=== PATIENT | male | born 1965 | race Caucasian/White ===

== ENCOUNTER 2019-06-19 15:05 | Observation (INO) ==
[2019-06-19] MEDS ORDERED: *HR* Heparin 5,000 UNIT/ML VIAL IVP ONE (17:54)
[2019-06-19] MEDS ORDERED: *HR* Heparin 5,000 UNIT/ML VIAL IVP PRN (17:54)
[2019-06-19] MEDS ORDERED: Naloxone 0.4 MG/ML INJ IVP PRN (17:56)
[2019-06-19] MEDS ORDERED: Ondansetron 4 MG/2 ML VIAL IVP PRN (17:56)
[2019-06-19] MEDS ORDERED: Heparin 25,000 UNIT/250 ML D5W 25,000 UNIT/250 ML IV.SOLN IVC SCH (18:00)
[2019-06-19] MEDS ORDERED: Furosemide 20 MG TABLET PO PRN (18:14)
[2019-06-19 19:08] LABS: Prothrombin Time 11.7 Seconds (9.4-12.1)
[2019-06-19 19:10] LABS: Hematocrit 43.3 % (37.5-50.1); Hemoglobin 14.9 g/dL (12.9-16.9); Mean Corpuscular HGB Conc 34.4 g/dL (31.6-35.5); Mean Corpuscular Hemoglobin 30.8 pg (28.0-33.3); Mean Corpuscular Volume 89.5 fL (83.0-100.0); Platelet Count 251 K/mcL (140-400); Red Blood Count 4.84 M/mcL (4.19-5.50); Red Cell Distribution Width 13.2 % (11.5-14.5); White Blood Count 9.8 K/mcL (4.3-11.1)
[2019-06-19] MEDS ORDERED: Acetaminophen 325 MG TABLET PO ONE (20:17)
[2019-06-20 00:48] LABS: Basophils % 0.4 %; Hematocrit 41.7 % (37.5-50.1); Hemoglobin 13.6 g/dL (12.9-16.9); Immature Granulocytes % 0.3 % (0-4); Lymphocytes # 2.7 K/mcL (0.6-4.6); Lymphocytes % 28.6 %; Mean Corpuscular HGB Conc 32.6 g/dL (31.6-35.5); Mean Corpuscular Hemoglobin 30.2 pg (28.0-33.3); Mean Corpuscular Volume 92.7 fL (83.0-100.0); Mean Platelet Volume 10.8 fL (9.4-12.4); Monocytes # 0.9 K/mcL (0.0-1.3); Monocytes % 9.4 %; Neutrophils # 5.8 K/mcL (1.6-8.9); Platelet Count 228 K/mcL (140-400); Red Cell Distribution Width 13.3 % (11.5-14.5); Segmented Neutrophils % 61.3 %; White Blood Count 9.4 K/mcL (4.3-11.1)
[2019-06-20 01:08] LABS: BUN/Creatinine Ratio 18 (6-26); Blood Urea Nitrogen 19 mg/dL (6-20); Calcium 9.2 mg/dL (8.6-10.3); Carbon Dioxide 24 mEq/L (23-29); Chloride 103 mEq/L (98-107); Glucose 125 mg/dL (70-105); Osmolality,Calculated 288 (280-300); Potassium 3.7 mEq/L (3.5-5.1); Sodium 137 mEq/L (136-145); eGFR For African Americans > 60 (> 60); eGFR For Non-African Americans > 60 (> 60)
[2019-06-20] MEDS: *HR* Heparin 5,000 UNIT/ML VIAL IVP PRN ×2 (02:49→10:41)
[2019-06-20] MEDS: Venlafaxine XR (24 HR) 75 MG CAP.ER.24H PO SCH (07:47)
[2019-06-20] MEDS: Aspirin Enteric Coated 81 MG Tablet PO SCH (07:47)
[2019-06-20] MEDS ORDERED: Nitroglycerin 0.4 MG TAB.SUBL SL PRN (09:28)
[2019-06-20] MEDS ORDERED: 0.9 % Sodium Chloride 2,000 ML ONE (14:14)
[2019-06-20] MEDS ORDERED: Heparin 1,000 UNITS/500 mL 500 ML ONE (14:15)
[2019-06-20] MEDS ORDERED: *HR* Heparin 10,000 UNIT/10 ML VIAL ONE (14:15)
[2019-06-20] MEDS ORDERED: Nitroglycerin 1,000 MCG/10 ML VIAL IV ONE (14:15)
[2019-06-20] MEDS ORDERED: ISOVUE-370 200 ML INFUS..BTL ONE ×2 (14:15→15:02)
[2019-06-20] MEDS ORDERED: *HR* Midazolam HCl 2 MG/2 ML VIAL ONE (14:31)
[2019-06-20] MEDS ORDERED: *HR* FentaNYL (PF) 100 MCG/2 ML VIAL ONE (14:32)
[2019-06-20] MEDS ORDERED: *HR* Bivalirudin 250 MG VIAL IVC ONE (15:02)
[2019-06-20] MEDS ORDERED: 0.9 % Sodium Chloride 1,000 ML IVC SCH (15:45)
[2019-06-20] MEDS ORDERED: Perflutren Lipid Microsphere 1.3 ML in 0.9 % Sodium Chloride 8.7 ML IVP ONE ×2 (16:09→22:20)
[2019-06-20] MEDS ORDERED: Acetaminophen 325 MG TABLET PO ONE (16:43)
[2019-06-20] MEDS ORDERED: Perflutren Lipid Microsphere 2 ML VIAL ONE (22:23)
[2019-06-21 06:39] LABS: Hematocrit 43.9 % (37.5-50.1); Hemoglobin 14.5 g/dL (12.9-16.9); Mean Corpuscular Hemoglobin 30.2 pg (28.0-33.3); Mean Corpuscular Volume 91.5 fL (83.0-100.0); Mean Platelet Volume 11.3 fL (9.4-12.4); Platelet Count 224 K/mcL (140-400); Red Cell Distribution Width 13.2 % (11.5-14.5); White Blood Count 7.8 K/mcL (4.3-11.1)
[2019-06-21 06:51] LABS: BUN/Creatinine Ratio 15 (6-26); Blood Urea Nitrogen 17 mg/dL (6-20); Calcium 8.7 mg/dL (8.6-10.3); Carbon Dioxide 27 mEq/L (23-29); Chloride 103 mEq/L (98-107); Chol/HDL Ratio 5.7 (0-4.9); Cholesterol 159 mg/dL (< 200); Glucose 129 mg/dL (70-105); HDL Cholesterol 28 mg/dL (40-59); LDL Cholesterol,Calculated 82 mg/dL (0-99); Magnesium 1.9 mg/dL (1.6-2.6); Osmolality,Calculated 291 (280-300); Sodium 139 mEq/L (136-145); Triglycerides 243 mg/dL (< 150); eGFR For African Americans > 60 (> 60); eGFR For Non-African Americans > 60 (> 60)
[2019-06-21 08:00] VITALS: BP 131/83
[2019-06-21] MEDS: Venlafaxine XR (24 HR) 75 MG CAP.ER.24H PO SCH (08:26)
[2019-06-21] MEDS: Aspirin Enteric Coated 81 MG Tablet PO SCH (08:26)
[2019-06-21 08:35] LABS: Estimated Average Glucose 140 mg/dl
== END 2019-06-21 11:14 | disposition home or self-care (01) ==
LOC: CDU → SUATTDRO 16:44 → 2ANU 06-20 12:12
PROVIDERS: ADMIT Family Medicine; ATTEND Internal Medicine

== ENCOUNTER 2019-07-07 20:52 | Inpatient (IN) ==
[2019-07-08] MEDS ORDERED: Morphine Sulfate 2 MG/ML SYRINGE IVP ONE ×3 (00:28→05:14)
[2019-07-08] MEDS ORDERED: Nitroglycerin 0.4 MG TAB.SUBL SL PRN (00:29)
[2019-07-08] MEDS ORDERED: Acetaminophen IV 1,000 MG/100 ML INFUS..BTL IVPB ONE (01:10)
[2019-07-08 02:13] LABS: Heparin anti-factor XA UFH 0.1 IU/mL (0.30-0.70)
[2019-07-08] MEDS ORDERED: *HR* Heparin 5,000 UNIT/ML VIAL IVP ONE (02:37)
[2019-07-08] MEDS ORDERED: *HR* Heparin 5,000 UNIT/ML VIAL IVP PRN ×2 (02:37)
[2019-07-08] MEDS ORDERED: Heparin 25,000 UNIT/250 ML D5W 25,000 UNIT/250 ML IV.SOLN IVC SCH (02:45)
[2019-07-08] MEDS ORDERED: Ondansetron ODT 4 MG TAB.RAPDIS SL PRN (02:52)
[2019-07-08] MEDS ORDERED: Naloxone 0.4 MG/ML INJ IVP PRN (02:52)
[2019-07-08 03:16] LABS: INR 1.2; Prothrombin Time 13.2 Seconds (9.4-12.1)
[2019-07-08 03:20] LABS: Basophils # 0.1 K/mcL (0.0-0.2); Basophils % 0.6 %; Hemoglobin 13.9 g/dL (12.9-16.9); Immature Granulocytes % 0.2 % (0-4); Lymphocytes # 2.4 K/mcL (0.6-4.6); Lymphocytes % 28.5 %; Mean Corpuscular HGB Conc 33.9 g/dL (31.6-35.5); Mean Corpuscular Hemoglobin 30.3 pg (28.0-33.3); Mean Corpuscular Volume 89.5 fL (83.0-100.0); Mean Platelet Volume 11.1 fL (9.4-12.4); Monocytes # 0.7 K/mcL (0.0-1.3); Monocytes % 8.1 %; Neutrophils # 5.3 K/mcL (1.6-8.9); Platelet Count 267 K/mcL (140-400); Red Blood Count 4.58 M/mcL (4.19-5.50); Red Cell Distribution Width 13.1 % (11.5-14.5); Segmented Neutrophils % 62.6 %; White Blood Count 8.5 K/mcL (4.3-11.1)
[2019-07-08 03:28] LABS: Estimated Average Glucose 140 mg/dl
[2019-07-08 03:42] LABS: Alanine Aminotransferase 21 Units/L (7-52); Albumin 3.9 g/dL (3.5-5.7); Albumin/Globulin Ratio 1.7 (1.1-2.2); Alkaline Phosphatase 68 Units/L (34-104); Aspartate Amino Transferase 38 Units/L (13-39); BUN/Creatinine Ratio 15 (6-26); Bilirubin,Total 0.4 mg/dL (0.3-1.0); Blood Urea Nitrogen 16 mg/dL (6-20); Calcium 8.8 mg/dL (8.6-10.3); Carbon Dioxide 23 mEq/L (23-29); Chloride 103 mEq/L (98-107); Chol/HDL Ratio 5.1 (0-4.9); Cholesterol 143 mg/dL (< 200); Globulin 2.3 g/dL (2.4-3.5); Glucose 177 mg/dL (70-105); HDL Cholesterol 28 mg/dL (40-59); LDL Cholesterol,Calculated 72 mg/dL (0-99); Magnesium 1.9 mg/dL (1.6-2.6); Osmolality,Calculated 288 (280-300); Phosphorous 3.7 mg/dL (2.7-4.5); Potassium 3.7 mEq/L (3.5-5.1); Sodium 136 mEq/L (136-145); Total Protein 6.2 g/dL (6.4-8.9); Triglycerides 213 mg/dL (< 150); Troponin I 2.42 ng/mL (< 0.04); eGFR For African Americans > 60 (> 60); eGFR For Non-African Americans > 60 (> 60)
[2019-07-08] MEDS ORDERED: 0.9 % Sodium Chloride 2,000 ML ONE (06:38)
[2019-07-08] MEDS ORDERED: Nitroglycerin 1,000 MCG/10 ML VIAL IV ONE (06:39)
[2019-07-08] MEDS ORDERED: Heparin 1,000 UNITS/500 mL 500 ML ONE (06:39)
[2019-07-08] MEDS ORDERED: *HR* Heparin 10,000 UNIT/10 ML VIAL ONE (06:39)
[2019-07-08] MEDS ORDERED: ISOVUE-370 200 ML INFUS..BTL ONE ×2 (06:39→07:33)
[2019-07-08] MEDS ORDERED: *HR* FentaNYL (PF) 100 MCG/2 ML VIAL ONE (06:55)
[2019-07-08] MEDS ORDERED: *HR* Midazolam HCl 2 MG/2 ML VIAL ONE (06:55)
[2019-07-08] MEDS ORDERED: Tirofiban 12.5 MG/250ML 12.5 MG/250 ML BAG ONE (07:17)
[2019-07-08] MEDS ORDERED: D5% in Water 1,000 ML IVC PRN (07:26)
[2019-07-08] MEDS ORDERED: *HR* Dextrose 50 % in Water (Syg) 50 ML SYRINGE IVP PRN (07:26)
[2019-07-08] MEDS ORDERED: Dextrose Gel 15 GM/37.5 ML TUBE PO PRN ×2 (07:26)
[2019-07-08] MEDS ORDERED: *HR* Ticagrelor 90 MG TABLET ONE (07:46)
[2019-07-08] MEDS ORDERED: Tirofiban 12.5 MG/250ML 12.5 MG/250 ML BAG IVC SCH (08:00)
[2019-07-08] MEDS: Aspirin 81 MG TAB.CHEW PO SCH (09:27)
[2019-07-08 10:30] LABS: Amphetamine Screen,Urine Negative ng/mL (Cutoff=1000); Barbiturate Screen,Urine Negative ng/mL (Cutoff=200); Benzodiazepines Screen,Urine Positive ng/mL (Cutoff=200); Cannabinoid Screen,Urine Negative ng/mL (Cutoff = 50); Cocaine Screen,Urine Negative ng/mL (Cutoff= 300); Opiate Screen,Urine Positive ng/mL (Cutoff=300); Phencyclidine Screen,Urine Negative ng/mL (Cutoff=25)
[2019-07-08] MEDS ORDERED: Insulin LISPRO 300 UNITS/3 ML VIAL SQ SCH (12:00)
[2019-07-08] MEDS ORDERED: Furosemide 20 MG TABLET PO PRN (12:49)
[2019-07-08] MEDS: *HR* Ticagrelor 90 MG TABLET PO SCH (21:27)
[2019-07-09 05:23] LABS: Basophils # 0.1 K/mcL (0.0-0.2); Basophils % 0.5 %; Hematocrit 38.6 % (37.5-50.1); Hemoglobin 12.4 g/dL (12.9-16.9); Immature Granulocytes % 0.4 % (0-4); Lymphocytes # 2.2 K/mcL (0.6-4.6); Lymphocytes % 22.4 %; Mean Corpuscular HGB Conc 32.1 g/dL (31.6-35.5); Mean Corpuscular Hemoglobin 30.2 pg (28.0-33.3); Mean Corpuscular Volume 94.1 fL (83.0-100.0); Mean Platelet Volume 10.8 fL (9.4-12.4); Monocytes # 0.9 K/mcL (0.0-1.3); Monocytes % 8.8 %; Neutrophils # 6.7 K/mcL (1.6-8.9); Platelet Count 216 K/mcL (140-400); Red Cell Distribution Width 13.2 % (11.5-14.5); Segmented Neutrophils % 67.9 %; White Blood Count 9.9 K/mcL (4.3-11.1)
[2019-07-09 05:43] LABS: BUN/Creatinine Ratio 31 (6-26); Blood Urea Nitrogen 29 mg/dL (6-20); Calcium 8.5 mg/dL (8.6-10.3); Carbon Dioxide 21 mEq/L (23-29); Chloride 107 mEq/L (98-107); Glucose 137 mg/dL (70-105); Osmolality,Calculated 290 (280-300); Potassium 3.9 mEq/L (3.5-5.1); Sodium 136 mEq/L (136-145); eGFR For African Americans > 60 (> 60); eGFR For Non-African Americans > 60 (> 60)
[2019-07-09 06:01] LABS: Magnesium 1.9 mg/dL (1.6-2.6); Phosphorous 2.8 mg/dL (2.7-4.5)
[2019-07-09] MEDS: Venlafaxine XR (24 HR) 75 MG CAP.ER.24H PO SCH (07:54)
[2019-07-09] MEDS: Aspirin 81 MG TAB.CHEW PO SCH (07:54)
[2019-07-09] MEDS: *HR* Ticagrelor 90 MG TABLET PO SCH ×2 (07:54→21:51)
[2019-07-09] MEDS: Pantoprazole 40 MG VIAL IVP SCH ×2 (12:04→16:51)
[2019-07-09 13:43] LABS: Hematocrit 37.9 % (37.5-50.1); Hemoglobin 12.6 g/dL (12.9-16.9)
[2019-07-09] MEDS ORDERED: SODIUM CHLORIDE/NAHCO3/KCL/PEG 4,000 ML SOLN.RECON PO ONE (16:15)
[2019-07-09 17:54] LABS: Hematocrit 39.1 % (37.5-50.1); Hemoglobin 13.2 g/dL (12.9-16.9)
[2019-07-10 00:35] LABS: Hematocrit 37.8 % (37.5-50.1); Hemoglobin 12.3 g/dL (12.9-16.9)
[2019-07-10] MEDS: Pantoprazole 40 MG VIAL IVP SCH ×2 (05:58→17:38)
[2019-07-10 07:01] LABS: Hematocrit 36.2 % (37.5-50.1); Hemoglobin 12.2 g/dL (12.9-16.9)
[2019-07-10] MEDS ORDERED: Propofol 500 MG/50 ML INFUS..BTL ONE (08:30)
[2019-07-10] MEDS ORDERED: Lidocaine -MPF 2% 2 ML VIAL ONE (08:31)
[2019-07-10] MEDS ORDERED: *HR* Succinylcholine 200 MG/10 ML VIAL IVP ONE ×2 (09:14→10:02)
[2019-07-10] MEDS ORDERED: Ondansetron 4 MG/2 ML VIAL ONE (09:19)
[2019-07-10] MEDS ORDERED: Dexamethasone 4 MG/ML VIAL ONE (09:19)
[2019-07-10] MEDS: Aspirin 81 MG TAB.CHEW PO SCH (12:57)
[2019-07-10] MEDS: *HR* Ticagrelor 90 MG TABLET PO SCH ×2 (12:58→22:18)
[2019-07-10] MEDS: Sucralfate 1 GM TABLET PO SCH ×3 (12:58→22:18)
[2019-07-10] MEDS: Venlafaxine XR (24 HR) 75 MG CAP.ER.24H PO SCH (12:58)
[2019-07-10 14:16] LABS: Hematocrit 37.8 % (37.5-50.1); Hemoglobin 12.3 g/dL (12.9-16.9)
[2019-07-10 18:07] LABS: Hematocrit 35.4 % (37.5-50.1); Hemoglobin 11.9 g/dL (12.9-16.9)
[2019-07-10 22:09] LABS: Hematocrit 31.9 % (37.5-50.1); Hemoglobin 11.1 g/dL (12.9-16.9)
[2019-07-11 04:30] LABS: Hematocrit 31.8 % (37.5-50.1); Hemoglobin 10.7 g/dL (12.9-16.9)
[2019-07-11] MEDS: Pantoprazole 40 MG VIAL IVP SCH ×2 (05:02→17:34)
[2019-07-11 09:01] LABS: Basophils % 0.2 %; Hematocrit 32.3 % (37.5-50.1); Hemoglobin 10.8 g/dL (12.9-16.9); Immature Granulocytes % 0.5 % (0-4); Lymphocytes # 2.3 K/mcL (0.6-4.6); Lymphocytes % 15.5 %; Mean Corpuscular HGB Conc 33.4 g/dL (31.6-35.5); Mean Corpuscular Hemoglobin 30.9 pg (28.0-33.3); Mean Corpuscular Volume 92.3 fL (83.0-100.0); Mean Platelet Volume 10.7 fL (9.4-12.4); Monocytes # 1.2 K/mcL (0.0-1.3); Monocytes % 8.2 %; Platelet Count 292 K/mcL (140-400); Red Cell Distribution Width 13.2 % (11.5-14.5); Segmented Neutrophils % 75.6 %; White Blood Count 14.6 K/mcL (4.3-11.1)
[2019-07-11] MEDS ORDERED: Ringers Solution, Lactated 1,000 ML IVC SCH (09:30)
[2019-07-11] MEDS: Sucralfate 1 GM TABLET PO SCH ×4 (09:43→22:29)
[2019-07-11] MEDS: Venlafaxine XR (24 HR) 75 MG CAP.ER.24H PO SCH (09:43)
[2019-07-11] MEDS: Aspirin 81 MG TAB.CHEW PO SCH (09:43)
[2019-07-11] MEDS: *HR* Ticagrelor 90 MG TABLET PO SCH ×2 (09:43→20:17)
[2019-07-11 09:50] LABS: Alanine Aminotransferase 33 Units/L (7-52); Albumin/Globulin Ratio 1.7 (1.1-2.2); Alkaline Phosphatase 56 Units/L (34-104); Aspartate Amino Transferase 40 Units/L (13-39); BUN/Creatinine Ratio 21 (6-26); Bilirubin,Total 0.7 mg/dL (0.3-1.0); Blood Urea Nitrogen 21 mg/dL (6-20); C-Reactive Protein 12 mg/L (Less than 10); Calcium 8.7 mg/dL (8.6-10.3); Carbon Dioxide 25 mEq/L (23-29); Chloride 101 mEq/L (98-107); Globulin 2.4 g/dL (2.4-3.5); Glucose 144 mg/dL (70-105); Osmolality,Calculated 296 (280-300); Potassium 4.1 mEq/L (3.5-5.1); Sodium 140 mEq/L (136-145); Total Protein 6.4 g/dL (6.4-8.9); Uric Acid 5.1 mg/dL (2.3-7.6); eGFR For African Americans > 60 (> 60); eGFR For Non-African Americans > 60 (> 60)
[2019-07-11] MEDS: *HR* HYDROcodone/Acet 5/325 mg TABLET PO PRN ×2 (14:11→20:18)
[2019-07-11] MEDS ORDERED: cefTRIAXone 1,000 MG in Water for inj. (sterile) 10 ML IVP SCH (14:27)
[2019-07-11 20:00] LABS: Hematocrit 30.2 % (37.5-50.1); Hemoglobin 10.2 g/dL (12.9-16.9)
[2019-07-12] MEDS: 0.9 % Sodium Chloride 1,000 ML IVC SCH ×3 (00:15→18:29)
[2019-07-12] MEDS: Pantoprazole 40 MG VIAL IVP SCH ×2 (05:07→18:29)
[2019-07-12] MEDS: Sucralfate 1 GM TABLET PO SCH ×4 (10:13→22:48)
[2019-07-12] MEDS: *HR* Ticagrelor 90 MG TABLET PO SCH ×2 (10:13→22:49)
[2019-07-12] MEDS: Venlafaxine XR (24 HR) 75 MG CAP.ER.24H PO SCH (10:13)
[2019-07-12] MEDS: Aspirin 81 MG TAB.CHEW PO SCH (10:14)
[2019-07-12 13:28] LABS: Basophils # 0.1 K/mcL (0.0-0.2); Basophils % 0.6 %; Hematocrit 26.9 % (37.5-50.1); Hemoglobin 8.9 g/dL (12.9-16.9); Immature Granulocytes % 0.7 % (0-4); Lymphocytes # 2.1 K/mcL (0.6-4.6); Lymphocytes % 20.8 %; Mean Corpuscular HGB Conc 33.1 g/dL (31.6-35.5); Mean Corpuscular Hemoglobin 30.5 pg (28.0-33.3); Mean Corpuscular Volume 92.1 fL (83.0-100.0); Mean Platelet Volume 10.8 fL (9.4-12.4); Monocytes # 0.7 K/mcL (0.0-1.3); Monocytes % 6.9 %; Neutrophils # 7.1 K/mcL (1.6-8.9); Platelet Count 256 K/mcL (140-400); Red Blood Count 2.92 M/mcL (4.19-5.50); Red Cell Distribution Width 13.7 % (11.5-14.5); White Blood Count 9.9 K/mcL (4.3-11.1)
[2019-07-12 13:58] LABS: Alanine Aminotransferase 23 Units/L (7-52); Albumin 3.3 g/dL (3.5-5.7); Albumin/Globulin Ratio 1.7 (1.1-2.2); Alkaline Phosphatase 51 Units/L (34-104); Aspartate Amino Transferase 19 Units/L (13-39); BUN/Creatinine Ratio 26 (6-26); Bilirubin,Total 0.5 mg/dL (0.3-1.0); Blood Urea Nitrogen 24 mg/dL (6-20); C-Reactive Protein 10 mg/L (Less than 10); Calcium 7.9 mg/dL (8.6-10.3); Carbon Dioxide 23 mEq/L (23-29); Chloride 105 mEq/L (98-107); Creatine Kinase 148 Units/L (30-223); Glucose 173 mg/dL (70-105); Magnesium 1.7 mg/dL (1.6-2.6); Osmolality,Calculated 290 (280-300); Potassium 3.5 mEq/L (3.5-5.1); Sodium 136 mEq/L (136-145); Total Protein 5.3 g/dL (6.4-8.9); eGFR For African Americans > 60 (> 60); eGFR For Non-African Americans > 60 (> 60)
[2019-07-12] MEDS: cefTRIAXone 1,000 MG in 0.9 % Sodium Chloride Mini Bag 100 ML IVPB SCH (15:42)
[2019-07-12] MEDS: *HR* HYDROcodone/Acet 5/325 mg TABLET PO PRN (15:43)
[2019-07-13] MEDS: 0.9 % Sodium Chloride 1,000 ML IVC SCH ×2 (02:31→11:24)
[2019-07-13 05:05] LABS: Hematocrit 24.6 % (37.5-50.1); Mean Corpuscular HGB Conc 32.5 g/dL (31.6-35.5); Mean Corpuscular Hemoglobin 30.8 pg (28.0-33.3); Mean Corpuscular Volume 94.6 fL (83.0-100.0); Platelet Count 266 K/mcL (140-400); Red Cell Distribution Width 13.8 % (11.5-14.5)
[2019-07-13 05:28] LABS: BUN/Creatinine Ratio 20 (6-26); Blood Urea Nitrogen 19 mg/dL (6-20); Carbon Dioxide 25 mEq/L (23-29); Chloride 104 mEq/L (98-107); Creatine Kinase 99 Units/L (30-223); Glucose 133 mg/dL (70-105); Magnesium 1.8 mg/dL (1.6-2.6); Osmolality,Calculated 294 (280-300); Potassium 3.8 mEq/L (3.5-5.1); Sodium 140 mEq/L (136-145); eGFR For African Americans > 60 (> 60); eGFR For Non-African Americans > 60 (> 60)
[2019-07-13] MEDS: Pantoprazole 40 MG VIAL IVP SCH ×2 (06:18→18:23)
[2019-07-13] MEDS: Aspirin 81 MG TAB.CHEW PO SCH (08:45)
[2019-07-13] MEDS: Venlafaxine XR (24 HR) 75 MG CAP.ER.24H PO SCH (08:45)
[2019-07-13] MEDS: Sucralfate 1 GM TABLET PO SCH ×4 (08:45→20:50)
[2019-07-13] MEDS: *HR* Ticagrelor 90 MG TABLET PO SCH ×2 (08:50→20:50)
[2019-07-13] MEDS: cefTRIAXone 1,000 MG in 0.9 % Sodium Chloride Mini Bag 100 ML IVPB SCH (08:52)
[2019-07-13 23:43] LABS: Bilirubin,Urine Negative (Negative); Blood,Urine Negative (Negative); Clarity,Urine Cloudy (Clear); Color,Urine Yellow (Yellow); Glucose,Urine (UA) Normal (Normal); Ketones,Urine Negative (Negative); Leukocyte Esterase,Urine Negative (Negative); Nitrite,Urine Negative (Negative); Protein,Urine Negative (Neg-Trace); Urobilinogen,Urine Normal (Normal)
[2019-07-13 23:53] LABS: Bacteria,Urine None Seen per hpf (None-Few); Hyaline Casts,Urine None Seen per lpf (None-Few); RBC,Urine 0-3 per hpf (0-3); Squamous Epithelial Cell,Urine None Seen per lpf (None-Few); WBC,Urine 0-3 per hpf (0-3)
[2019-07-14 05:35] LABS: Hematocrit 18.4 % (37.5-50.1); Mean Corpuscular HGB Conc 32.6 g/dL (31.6-35.5); Mean Corpuscular Hemoglobin 30.6 pg (28.0-33.3); Mean Corpuscular Volume 93.9 fL (83.0-100.0); Mean Platelet Volume 10.6 fL (9.4-12.4); Platelet Count 280 K/mcL (140-400); Red Blood Count 1.96 M/mcL (4.19-5.50); Red Cell Distribution Width 14.6 % (11.5-14.5); White Blood Count 11.4 K/mcL (4.3-11.1)
[2019-07-14 05:57] LABS: BUN/Creatinine Ratio 28 (6-26); Blood Urea Nitrogen 26 mg/dL (6-20); Calcium 7.8 mg/dL (8.6-10.3); Carbon Dioxide 25 mEq/L (23-29); Chloride 105 mEq/L (98-107); Glucose 159 mg/dL (70-105); Osmolality,Calculated 296 (280-300); Potassium 3.9 mEq/L (3.5-5.1); Sodium 139 mEq/L (136-145); eGFR For African Americans > 60 (> 60); eGFR For Non-African Americans > 60 (> 60)
[2019-07-14] MEDS: Pantoprazole 40 MG VIAL IVP SCH (06:39)
[2019-07-14] MEDS ORDERED: 0.9 % Sodium Chloride 1,000 ML IVC ONE (07:47)
[2019-07-14] MEDS ORDERED: 0.9 % Sodium Chloride 250 ML ONE ×3 (07:47→15:02)
[2019-07-14] MEDS: Venlafaxine XR (24 HR) 75 MG CAP.ER.24H PO SCH (08:24)
[2019-07-14] MEDS: Aspirin 81 MG TAB.CHEW PO SCH (08:24)
[2019-07-14] MEDS: Sucralfate 1 GM TABLET PO SCH ×2 (08:24→10:45)
[2019-07-14] MEDS: *HR* Ticagrelor 90 MG TABLET PO SCH ×2 (08:26→20:03)
[2019-07-14] MEDS ORDERED: Ondansetron 4 MG/2 ML VIAL ONE (11:22)
[2019-07-14] MEDS ORDERED: *HR* FentaNYL (PF) 100 MCG/2 ML VIAL ONE ×2 (11:22→11:59)
[2019-07-14] MEDS ORDERED: *HR* Rocuronium Bromide 50 MG/5 ML VIAL ONE (11:22)
[2019-07-14] MEDS ORDERED: Dexamethasone 4 MG/ML VIAL ONE (11:22)
[2019-07-14] MEDS ORDERED: *HR* Propofol 200 MG/20 ML VIAL IVP ONE (11:22)
[2019-07-14] MEDS ORDERED: Lidocaine -MPF 2% 2 ML VIAL ONE (11:22)
[2019-07-14] MEDS ORDERED: Lidocaine -MPF 4% 5 ML AMPUL ONE (11:22)
[2019-07-14] MEDS ORDERED: *HR* Metoprolol 5 MG/5 ML VIAL IVP ONE (12:02)
[2019-07-14] MEDS ORDERED: EPINEPHrine 1 MG/ML VIAL ONE (12:12)
[2019-07-14] MEDS ORDERED: *HR* Labetalol 20 MG/4 ML SYRINGE IVP ONE (12:40)
[2019-07-14] MEDS ORDERED: Lidocaine -MPF 1% 5 ML AMPUL INFILT ONE (13:47)
[2019-07-14] MEDS ORDERED: D10% in Water 500 ML IVC PRN ×2 (14:08→14:18)
[2019-07-14] MEDS: Octreotide 400 MCG in 0.9 % Sodium Chloride 100 ML IVC SCH (14:40)
[2019-07-14] MEDS: Pantoprazole 40 MG in 0.9 % Sodium Chloride Mini Bag 100 ML IVC SCH ×2 (14:40→20:02)
[2019-07-14 15:03] LABS: Hematocrit 24.9 % (37.5-50.1)
[2019-07-14 15:06] LABS: Hemoglobin 8.3 g/dL (12.9-16.9)
[2019-07-14 15:23] LABS: Magnesium 1.7 mg/dL (1.6-2.6)
[2019-07-14] MEDS ORDERED: Clinimix E 5%-15% SOLUTION 2,000 ML with MVI, adult with vitamin K 10 ML IVC SCH (17:00)
[2019-07-14] MEDS: *HR* HYDROcodone/Acet 5/325 mg TABLET PO PRN (20:03)
[2019-07-14 21:56] LABS: Hematocrit 29.9 % (37.5-50.1)
[2019-07-14 21:57] LABS: Hemoglobin 10.2 g/dL (12.9-16.9)
[2019-07-15] MEDS: Pantoprazole 40 MG in 0.9 % Sodium Chloride Mini Bag 100 ML IVC SCH ×5 (00:41→21:20)
[2019-07-15 05:24] LABS: Hematocrit 27.2 % (37.5-50.1)
[2019-07-15 05:40] LABS: BUN/Creatinine Ratio 27 (6-26); Blood Urea Nitrogen 23 mg/dL (6-20); Calcium 7.6 mg/dL (8.6-10.3); Carbon Dioxide 23 mEq/L (23-29); Chloride 107 mEq/L (98-107); Glucose 214 mg/dL (70-105); Magnesium 1.9 mg/dL (1.6-2.6); Osmolality,Calculated 292 (280-300); Potassium 4.2 mEq/L (3.5-5.1); Sodium 136 mEq/L (136-145); Triglycerides 219 mg/dL (< 150); eGFR For African Americans > 60 (> 60); eGFR For Non-African Americans > 60 (> 60)
[2019-07-15] MEDS: Octreotide 400 MCG in 0.9 % Sodium Chloride 100 ML IVC SCH ×2 (05:47→22:10)
[2019-07-15] MEDS: *HR* Ticagrelor 90 MG TABLET PO SCH ×2 (08:19→21:20)
[2019-07-15] MEDS: Aspirin 81 MG TAB.CHEW PO SCH (08:19)
[2019-07-15] MEDS: Venlafaxine XR (24 HR) 75 MG CAP.ER.24H PO SCH (08:19)
[2019-07-15 12:15] LABS: Hemoglobin 8.8 g/dL (12.9-16.9)
[2019-07-15] MEDS: Insulin LISPRO 300 UNITS/3 ML VIAL SQ SCH ×3 (13:46→21:19)
[2019-07-15] MEDS ORDERED: Clinimix E 5%-15% SOLUTION 2,000 ML with MVI, adult with vitamin K 10 ML IVC SCH (17:00)
[2019-07-15 19:17] LABS: Hematocrit 27.5 % (37.5-50.1); Hemoglobin 9.3 g/dL (12.9-16.9)
[2019-07-15] MEDS: *HR* HYDROcodone/Acet 5/325 mg TABLET PO PRN (21:19)
[2019-07-16] MEDS: Insulin LISPRO 300 UNITS/3 ML VIAL SQ SCH ×6 (00:37→22:26)
[2019-07-16] MEDS: Pantoprazole 40 MG in 0.9 % Sodium Chloride Mini Bag 100 ML IVC SCH ×5 (02:03→20:52)
[2019-07-16 05:55] LABS: Hematocrit 24.5 % (37.5-50.1)
[2019-07-16 06:41] LABS: BUN/Creatinine Ratio 27 (6-26); Blood Urea Nitrogen 24 mg/dL (6-20); Calcium 7.8 mg/dL (8.6-10.3); Carbon Dioxide 27 mEq/L (23-29); Chloride 105 mEq/L (98-107); Glucose 148 mg/dL (70-105); Magnesium 2.1 mg/dL (1.6-2.6); Osmolality,Calculated 293 (280-300); Potassium 4.3 mEq/L (3.5-5.1); Sodium 138 mEq/L (136-145); eGFR For African Americans > 60 (> 60); eGFR For Non-African Americans > 60 (> 60)
[2019-07-16] MEDS: Venlafaxine XR (24 HR) 75 MG CAP.ER.24H PO SCH (09:53)
[2019-07-16] MEDS: *HR* Ticagrelor 90 MG TABLET PO SCH ×2 (09:53→20:54)
[2019-07-16] MEDS: Aspirin 81 MG TAB.CHEW PO SCH (09:53)
[2019-07-16] MEDS ORDERED: Clinimix E 5%-15% SOLUTION 2,000 ML with MVI, adult with vitamin K 10 ML IVC SCH (17:00)
[2019-07-16] MEDS: Octreotide 400 MCG in 0.9 % Sodium Chloride 100 ML IVC SCH (17:07)
[2019-07-17] MEDS: Insulin LISPRO 300 UNITS/3 ML VIAL SQ SCH ×6 (00:47→22:12)
[2019-07-17] MEDS: Pantoprazole 40 MG in 0.9 % Sodium Chloride Mini Bag 100 ML IVC SCH ×4 (02:06→18:21)
[2019-07-17] MEDS: *HR* HYDROcodone/Acet 5/325 mg TABLET PO PRN (02:57)
[2019-07-17 03:31] LABS: Hematocrit 25.2 % (37.5-50.1); Hemoglobin 8.1 g/dL (12.9-16.9); Mean Corpuscular HGB Conc 32.1 g/dL (31.6-35.5); Mean Corpuscular Hemoglobin 30.8 pg (28.0-33.3); Mean Corpuscular Volume 95.8 fL (83.0-100.0); Mean Platelet Volume 10.7 fL (9.4-12.4); Platelet Count 223 K/mcL (140-400); Red Blood Count 2.63 M/mcL (4.19-5.50); Red Cell Distribution Width 16.7 % (11.5-14.5); White Blood Count 10.6 K/mcL (4.3-11.1)
[2019-07-17 03:52] LABS: BUN/Creatinine Ratio 25 (6-26); Blood Urea Nitrogen 23 mg/dL (6-20); Calcium 7.6 mg/dL (8.6-10.3); Carbon Dioxide 28 mEq/L (23-29); Chloride 105 mEq/L (98-107); Glucose 127 mg/dL (70-105); Magnesium 1.9 mg/dL (1.6-2.6); Osmolality,Calculated 289 (280-300); Phosphorous 3.5 mg/dL (2.7-4.5); Sodium 137 mEq/L (136-145); eGFR For African Americans > 60 (> 60); eGFR For Non-African Americans > 60 (> 60)
[2019-07-17] MEDS: *HR* Ticagrelor 90 MG TABLET PO SCH ×2 (07:35→22:07)
[2019-07-17] MEDS: Aspirin 81 MG TAB.CHEW PO SCH (07:36)
[2019-07-17] MEDS: Venlafaxine XR (24 HR) 75 MG CAP.ER.24H PO SCH (07:36)
[2019-07-17] MEDS: Octreotide 400 MCG in 0.9 % Sodium Chloride 100 ML IVC SCH (07:40)
[2019-07-17] MEDS ORDERED: Iron Sucrose Complex 400 MG in 0.9 % Sodium Chloride 250 ML IVPB ONE (16:42)
[2019-07-17] MEDS ORDERED: Clinimix E 5%-15% SOLUTION 2,000 ML with MVI, adult with vitamin K 10 ML IVC SCH (17:00)
[2019-07-18 00:07] LABS: % Iron Saturation 5 % (20-55); Iron 13 mcg/dL (65-175); Transferrin 203 mg/dL (203-362)
[2019-07-18] MEDS: Pantoprazole 40 MG in 0.9 % Sodium Chloride Mini Bag 100 ML IVC SCH ×5 (00:41→20:28)
[2019-07-18] MEDS: Insulin LISPRO 300 UNITS/3 ML VIAL SQ SCH ×6 (00:42→20:41)
[2019-07-18] MEDS: Octreotide 400 MCG in 0.9 % Sodium Chloride 100 ML IVC SCH ×2 (01:19→16:16)
[2019-07-18 07:00] LABS: Hematocrit 23.6 % (37.5-50.1); Mean Corpuscular HGB Conc 29.7 g/dL (31.6-35.5); Mean Corpuscular Hemoglobin 30.8 pg (28.0-33.3); Mean Platelet Volume 10.7 fL (9.4-12.4); Platelet Count 219 K/mcL (140-400); Red Blood Count 2.27 M/mcL (4.19-5.50); Red Cell Distribution Width 16.7 % (11.5-14.5); White Blood Count 7.2 K/mcL (4.3-11.1)
[2019-07-18 07:41] LABS: BUN/Creatinine Ratio 20 (6-26); Blood Urea Nitrogen 19 mg/dL (6-20); Calcium 8.2 mg/dL (8.6-10.3); Carbon Dioxide 28 mEq/L (23-29); Chloride 103 mEq/L (98-107); Glucose 151 mg/dL (70-105); Magnesium 2.2 mg/dL (1.6-2.6); Osmolality,Calculated 295 (280-300); Phosphorous 4.1 mg/dL (2.7-4.5); Potassium 3.8 mEq/L (3.5-5.1); Sodium 140 mEq/L (136-145); eGFR For African Americans > 60 (> 60); eGFR For Non-African Americans > 60 (> 60)
[2019-07-18] MEDS ORDERED: Sodium Ferric Gluconat/Sucrose 125 MG in 0.9 % Sodium Chloride 100 ML IVPB SCH (09:00)
[2019-07-18] MEDS ORDERED: Clinimix E 5%-15% SOLUTION 2,000 ML with MVI, adult with vitamin K 10 ML IVC SCH (09:29)
[2019-07-18] MEDS: *HR* Ticagrelor 90 MG TABLET PO SCH ×2 (10:25→20:29)
[2019-07-18] MEDS: Venlafaxine XR (24 HR) 75 MG CAP.ER.24H PO SCH (10:25)
[2019-07-18] MEDS: Aspirin 81 MG TAB.CHEW PO SCH (10:25)
[2019-07-18] MEDS ORDERED: 0.9 % Sodium Chloride 250 ML ONE ×2 (12:52→16:14)
[2019-07-18 16:10] LABS: Hemoglobin 8.2 g/dL (12.9-16.9)
[2019-07-18 21:05] LABS: Hematocrit 26.8 % (37.5-50.1); Hemoglobin 8.7 g/dL (12.9-16.9)
[2019-07-19] MEDS: Insulin LISPRO 300 UNITS/3 ML VIAL SQ SCH ×3 (00:51→08:32)
[2019-07-19] MEDS: Pantoprazole 40 MG in 0.9 % Sodium Chloride Mini Bag 100 ML IVC SCH ×6 (00:51→20:50)
[2019-07-19 05:25] LABS: Hematocrit 26.9 % (37.5-50.1); Hemoglobin 8.7 g/dL (12.9-16.9); Mean Corpuscular HGB Conc 32.3 g/dL (31.6-35.5); Mean Corpuscular Hemoglobin 30.4 pg (28.0-33.3); Mean Platelet Volume 10.6 fL (9.4-12.4); Platelet Count 259 K/mcL (140-400); Red Blood Count 2.86 M/mcL (4.19-5.50); Red Cell Distribution Width 16.9 % (11.5-14.5)
[2019-07-19 05:32] LABS: Mean Corpuscular Volume 94.1 fL (83.0-100.0); White Blood Count 11.3 K/mcL (4.3-11.1)
[2019-07-19 05:44] LABS: BUN/Creatinine Ratio 23 (6-26); Blood Urea Nitrogen 21 mg/dL (6-20); Calcium 7.2 mg/dL (8.6-10.3); Carbon Dioxide 23 mEq/L (23-29); Chloride 109 mEq/L (98-107); Glucose 135 mg/dL (70-105); Magnesium 1.7 mg/dL (1.6-2.6); Osmolality,Calculated 291 (280-300); Phosphorous 3.4 mg/dL (2.7-4.5); Potassium 3.8 mEq/L (3.5-5.1); Sodium 138 mEq/L (136-145); eGFR For African Americans > 60 (> 60); eGFR For Non-African Americans > 60 (> 60)
[2019-07-19 06:10] LABS: Folate 6.1 ng/mL (3.0-16.0)
[2019-07-19] MEDS: *HR* Ticagrelor 90 MG TABLET PO SCH ×2 (08:30→20:08)
[2019-07-19] MEDS: Aspirin 81 MG TAB.CHEW PO SCH (08:30)
[2019-07-19] MEDS: Venlafaxine XR (24 HR) 75 MG CAP.ER.24H PO SCH (08:31)
[2019-07-19] MEDS ORDERED: Iron Sucrose Complex 250 MG in 0.9 % Sodium Chloride 250 ML IVPB SCH (09:00)
[2019-07-19] MEDS ORDERED: Cyanocobalamin (B-12) 1,000 MCG/ML VIAL SQ SCH (09:00)
[2019-07-19] MEDS ORDERED: *HR* FentaNYL (PF) 100 MCG/2 ML VIAL ONE (09:43)
[2019-07-19] MEDS ORDERED: *HR* Propofol 200 MG/20 ML VIAL IVP ONE (09:43)
[2019-07-19] MEDS ORDERED: Ondansetron 4 MG/2 ML VIAL ONE (09:44)
[2019-07-19] MEDS ORDERED: Dexamethasone 4 MG/ML VIAL ONE (09:44)
[2019-07-19] MEDS ORDERED: Lidocaine -MPF 2% 2 ML VIAL ONE (09:44)
[2019-07-19] MEDS ORDERED: Lidocaine -MPF 4% 5 ML AMPUL ONE (09:44)
[2019-07-19] MEDS ORDERED: *HR* Rocuronium Bromide 50 MG/5 ML VIAL ONE (09:44)
[2019-07-19] MEDS ORDERED: *HR* PHENYLEPHRINE 1,000 MCG/10 ML SYRINGE IVP ONE (10:08)
[2019-07-19] MEDS ORDERED: Ondansetron ODT 4 MG TAB.RAPDIS SL PRN (11:00)
[2019-07-19] MEDS ORDERED: *HR* HYDROcodone/Acet 5/325 mg TABLET PO PRN (11:00)
[2019-07-19] MEDS ORDERED: Octreotide 400 MCG in 0.9 % Sodium Chloride 100 ML IVC SCH (11:00)
[2019-07-19] MEDS ORDERED: *HR* Dextrose 50 % in Water (Syg) 50 ML SYRINGE IVP PRN (11:00)
[2019-07-19] MEDS ORDERED: Dextrose Gel 15 GM/37.5 ML TUBE PO PRN ×2 (11:00)
[2019-07-19] MEDS ORDERED: D5% in Water 1,000 ML IVC PRN (11:00)
[2019-07-19] MEDS ORDERED: D10% in Water 500 ML IVC PRN (11:00)
[2019-07-19] MEDS ORDERED: Naloxone 0.4 MG/ML INJ IVP PRN (11:00)
[2019-07-19] MEDS ORDERED: Furosemide 20 MG TABLET PO PRN (11:00)
[2019-07-19] MEDS ORDERED: Insulin LISPRO 300 UNITS/3 ML VIAL SQ SCH (11:30)
[2019-07-20] MEDS: Pantoprazole 40 MG in 0.9 % Sodium Chloride Mini Bag 100 ML IVC SCH ×5 (02:32→21:14)
[2019-07-20 03:17] LABS: Hemoglobin 7.7 g/dL (12.9-16.9); Mean Corpuscular HGB Conc 32.1 g/dL (31.6-35.5); Mean Corpuscular Hemoglobin 30.6 pg (28.0-33.3); Mean Corpuscular Volume 95.2 fL (83.0-100.0); Mean Platelet Volume 10.6 fL (9.4-12.4); Platelet Count 268 K/mcL (140-400); Red Blood Count 2.52 M/mcL (4.19-5.50); Red Cell Distribution Width 17.2 % (11.5-14.5); White Blood Count 13.2 K/mcL (4.3-11.1)
[2019-07-20 03:35] LABS: BUN/Creatinine Ratio 25 (6-26); Blood Urea Nitrogen 21 mg/dL (6-20); Calcium 7.3 mg/dL (8.6-10.3); Carbon Dioxide 24 mEq/L (23-29); Chloride 108 mEq/L (98-107); Glucose 164 mg/dL (70-105); Osmolality,Calculated 293 (280-300); Sodium 138 mEq/L (136-145); eGFR For African Americans > 60 (> 60); eGFR For Non-African Americans > 60 (> 60)
[2019-07-20] MEDS ORDERED: 0.9 % Sodium Chloride 250 ML ONE (04:36)
[2019-07-20] MEDS: Metoprolol XL (24 HR) Succ 25 MG TAB.ER.24H PO SCH (07:25)
[2019-07-20] MEDS: Aspirin 81 MG TAB.CHEW PO SCH (07:30)
[2019-07-20] MEDS: Venlafaxine XR (24 HR) 75 MG CAP.ER.24H PO SCH (07:31)
[2019-07-20] MEDS: *HR* Ticagrelor 90 MG TABLET PO SCH ×2 (07:31→21:14)
[2019-07-20] MEDS: Cyanocobalamin (B-12) 1,000 MCG/ML VIAL SQ SCH (07:31)
[2019-07-20] MEDS ORDERED: Nitroglycerin 0.4 MG TAB.SUBL SL ONE ×2 (09:14→09:17)
[2019-07-20] MEDS: Iron Sucrose Complex 250 MG in 0.9 % Sodium Chloride 250 ML IVPB SCH (09:49)
[2019-07-20 09:53] LABS: Hematocrit 28.4 % (37.5-50.1); Hemoglobin 9.1 g/dL (12.9-16.9)
[2019-07-20] MEDS: Piperacillin/Tazobactam 3.375 GM in 0.9 % Sodium Chloride Mini Bag 100 ML IVPB SCH ×2 (11:31→16:07)
[2019-07-20 15:32] LABS: Hematocrit 27.3 % (37.5-50.1); Hemoglobin 8.7 g/dL (12.9-16.9)
[2019-07-20 22:07] LABS: Estimated Average Glucose 94 mg/dl
[2019-07-21] MEDS: Piperacillin/Tazobactam 3.375 GM in 0.9 % Sodium Chloride Mini Bag 100 ML IVPB SCH ×3 (00:14→16:40)
[2019-07-21] MEDS: Pantoprazole 40 MG in 0.9 % Sodium Chloride Mini Bag 100 ML IVC SCH ×5 (03:06→21:48)
[2019-07-21 03:26] LABS: Hematocrit 25.8 % (37.5-50.1); Hemoglobin 8.2 g/dL (12.9-16.9); Mean Corpuscular HGB Conc 31.8 g/dL (31.6-35.5); Mean Corpuscular Hemoglobin 30.6 pg (28.0-33.3); Mean Corpuscular Volume 96.3 fL (83.0-100.0); Mean Platelet Volume 10.3 fL (9.4-12.4); Platelet Count 247 K/mcL (140-400); Red Blood Count 2.68 M/mcL (4.19-5.50); Red Cell Distribution Width 18.6 % (11.5-14.5); White Blood Count 10.2 K/mcL (4.3-11.1)
[2019-07-21 03:43] LABS: BUN/Creatinine Ratio 19 (6-26); Blood Urea Nitrogen 21 mg/dL (6-20); Calcium 7.5 mg/dL (8.6-10.3); Carbon Dioxide 25 mEq/L (23-29); Chloride 109 mEq/L (98-107); Glucose 128 mg/dL (70-105); Osmolality,Calculated 297 (280-300); Potassium 3.9 mEq/L (3.5-5.1); Sodium 141 mEq/L (136-145); eGFR For African Americans > 60 (> 60); eGFR For Non-African Americans > 60 (> 60)
[2019-07-21] MEDS: Venlafaxine XR (24 HR) 75 MG CAP.ER.24H PO SCH (07:58)
[2019-07-21] MEDS: Metoprolol XL (24 HR) Succ 25 MG TAB.ER.24H PO SCH (07:58)
[2019-07-21] MEDS: *HR* Ticagrelor 90 MG TABLET PO SCH (07:59)
[2019-07-21] MEDS: Aspirin 81 MG TAB.CHEW PO SCH (07:59)
[2019-07-21] MEDS: Isosorbide MONOnitrate (24 HR) 30 MG TAB.ER.24H PO SCH (07:59)
[2019-07-21] MEDS: Cyanocobalamin (B-12) 1,000 MCG/ML VIAL SQ SCH (07:59)
[2019-07-21 08:25] LABS: Hemoglobin 8.6 g/dL (12.9-16.9)
[2019-07-21] MEDS: Iron Sucrose Complex 250 MG in 0.9 % Sodium Chloride 250 ML IVPB SCH (09:00)
[2019-07-21] MEDS ORDERED: Heparin 1,000 UNITS/500 mL 500 ML ONE (13:43)
[2019-07-21] MEDS ORDERED: 0.9 % Sodium Chloride 500 ML ONE (13:43)
[2019-07-21] MEDS ORDERED: *HR* Midazolam HCl 2 MG/2 ML VIAL IVP ONE (14:51)
[2019-07-21] MEDS ORDERED: *HR* FentaNYL (PF) 100 MCG/2 ML VIAL IVP ONE (14:51)
[2019-07-21] MEDS ORDERED: 0.9 % Sodium Chloride 1,000 ML ONE (14:56)
[2019-07-21] MEDS ORDERED: Ondansetron 4 MG/2 ML VIAL ONE (15:09)
[2019-07-21] MEDS ORDERED: Ondansetron 4 MG/2 ML VIAL IVP ONE (15:17)
[2019-07-21] MEDS ORDERED: Isovue-300 50ML VIAL IVP ONE ×3 (15:54→16:05)
[2019-07-21] MEDS ORDERED: Acetaminophen 325 MG TABLET PO PRN (15:54)
[2019-07-21 17:11] LABS: Hemoglobin 8.3 g/dL (12.9-16.9)
[2019-07-21 23:01] LABS: Hematocrit 26.1 % (37.5-50.1); Hemoglobin 8.3 g/dL (12.9-16.9)
[2019-07-22] MEDS: Piperacillin/Tazobactam 3.375 GM in 0.9 % Sodium Chloride Mini Bag 100 ML IVPB SCH ×3 (00:44→15:42)
[2019-07-22] MEDS: Pantoprazole 40 MG in 0.9 % Sodium Chloride Mini Bag 100 ML IVC SCH ×2 (03:51→09:01)
[2019-07-22 05:12] LABS: Hematocrit 26.5 % (37.5-50.1); Hemoglobin 8.4 g/dL (12.9-16.9); Mean Corpuscular HGB Conc 31.7 g/dL (31.6-35.5); Mean Corpuscular Hemoglobin 30.8 pg (28.0-33.3); Mean Corpuscular Volume 97.1 fL (83.0-100.0); Mean Platelet Volume 10.1 fL (9.4-12.4); Platelet Count 250 K/mcL (140-400); Red Blood Count 2.73 M/mcL (4.19-5.50); Red Cell Distribution Width 18.6 % (11.5-14.5); White Blood Count 8.3 K/mcL (4.3-11.1)
[2019-07-22 05:27] LABS: BUN/Creatinine Ratio 13 (6-26); Blood Urea Nitrogen 16 mg/dL (6-20); Calcium 8.1 mg/dL (8.6-10.3); Carbon Dioxide 28 mEq/L (23-29); Chloride 103 mEq/L (98-107); Glucose 117 mg/dL (70-105); Osmolality,Calculated 292 (280-300); Potassium 3.8 mEq/L (3.5-5.1); Sodium 140 mEq/L (136-145); eGFR For African Americans > 60 (> 60); eGFR For Non-African Americans > 60 (> 60)
[2019-07-22 08:08] LABS: Hematocrit 28.9 % (37.5-50.1); Hemoglobin 9.1 g/dL (12.9-16.9)
[2019-07-22] MEDS: Isosorbide MONOnitrate (24 HR) 30 MG TAB.ER.24H PO SCH (08:09)
[2019-07-22] MEDS: Aspirin 81 MG TAB.CHEW PO SCH (08:09)
[2019-07-22] MEDS: Venlafaxine XR (24 HR) 75 MG CAP.ER.24H PO SCH (08:09)
[2019-07-22] MEDS: Cyanocobalamin (B-12) 1,000 MCG/ML VIAL SQ SCH (08:09)
[2019-07-22] MEDS: Metoprolol XL (24 HR) Succ 25 MG TAB.ER.24H PO SCH (08:09)
[2019-07-22 12:23] LABS: Hematocrit 28.9 % (37.5-50.1); Hemoglobin 9.1 g/dL (12.9-16.9)
[2019-07-22] MEDS: Pantoprazole 40 MG VIAL IVP SCH (18:07)
[2019-07-23] MEDS: Piperacillin/Tazobactam 3.375 GM in 0.9 % Sodium Chloride Mini Bag 100 ML IVPB SCH ×4 (00:32→23:32)
[2019-07-23 04:24] LABS: Basophils % 0.4 %; Hematocrit 28.4 % (37.5-50.1); Hemoglobin 9.1 g/dL (12.9-16.9); Immature Granulocytes % 0.6 % (0-4); Lymphocytes % 26.3 %; Mean Corpuscular Hemoglobin 31.4 pg (28.0-33.3); Mean Corpuscular Volume 97.9 fL (83.0-100.0); Mean Platelet Volume 10.2 fL (9.4-12.4); Monocytes # 0.7 K/mcL (0.0-1.3); Monocytes % 8.5 %; Platelet Count 270 K/mcL (140-400); Red Cell Distribution Width 18.3 % (11.5-14.5); Segmented Neutrophils % 64.2 %; White Blood Count 7.7 K/mcL (4.3-11.1)
[2019-07-23] MEDS: Pantoprazole 40 MG VIAL IVP SCH ×2 (05:36→18:54)
[2019-07-23] MEDS: Cyanocobalamin (B-12) 1,000 MCG/ML VIAL SQ SCH (08:05)
[2019-07-23] MEDS: Metoprolol XL (24 HR) Succ 25 MG TAB.ER.24H PO SCH (08:05)
[2019-07-23] MEDS: Isosorbide MONOnitrate (24 HR) 30 MG TAB.ER.24H PO SCH (08:05)
[2019-07-23] MEDS: Aspirin 81 MG TAB.CHEW PO SCH (08:05)
[2019-07-23] MEDS: Venlafaxine XR (24 HR) 75 MG CAP.ER.24H PO SCH (08:05)
[2019-07-24 04:27] LABS: Hematocrit 28.9 % (37.5-50.1); Hemoglobin 9.1 g/dL (12.9-16.9); Mean Corpuscular HGB Conc 31.5 g/dL (31.6-35.5); Mean Corpuscular Hemoglobin 30.7 pg (28.0-33.3); Mean Corpuscular Volume 97.6 fL (83.0-100.0); Mean Platelet Volume 10.2 fL (9.4-12.4); Platelet Count 276 K/mcL (140-400); Red Blood Count 2.96 M/mcL (4.19-5.50); Red Cell Distribution Width 17.7 % (11.5-14.5); White Blood Count 7.4 K/mcL (4.3-11.1)
[2019-07-24] MEDS: Pantoprazole 40 MG VIAL IVP SCH (05:07)
[2019-07-24 07:07] VITALS: BP 127/72
[2019-07-24] MEDS: Aspirin 81 MG TAB.CHEW PO SCH (09:09)
[2019-07-24] MEDS: Venlafaxine XR (24 HR) 75 MG CAP.ER.24H PO SCH (09:09)
[2019-07-24] MEDS: Isosorbide MONOnitrate (24 HR) 30 MG TAB.ER.24H PO SCH (09:09)
[2019-07-24] MEDS: Metoprolol XL (24 HR) Succ 25 MG TAB.ER.24H PO SCH (09:09)
[2019-07-24] MEDS: Piperacillin/Tazobactam 3.375 GM in 0.9 % Sodium Chloride Mini Bag 100 ML IVPB SCH (09:09)
[2019-07-24] MEDS: Cyanocobalamin (B-12) 1,000 MCG/ML VIAL SQ SCH (09:10)
== END 2019-07-24 10:25 | disposition home or self-care (01) | DRG 270 ==
LOC: 2NENU → SUATTDRO 22:09 → 2NNU 07-14 17:37 → 2NENU 07-17 20:49
PROVIDERS: ADMIT Internal Medicine; ATTEND Internal Medicine
PROC: ENDOEBX (2019-07-14 11:30)